=== PATIENT | female | born 1985 | race Caucasian/White ===

== ENCOUNTER 2018-08-01 20:58 | Emergency (ER) | payer OTHER ==
[2018-08-01 21:17] VITALS: RESP 18; TEMP 98.6; O2SAT 99
[2018-08-01] MEDS ORDERED: Bacitracin 500 Units/gm Oint Foilpak UD ONE (21:54)
--- NOTE | 2018-08-01 21:57 | C.PDOC ---
History Of Present Illness 32 year old female presents to the ED complaining of left foot pain. Patient [place] she felt a toothpick punctured her left foot. She reports she removed the toothpick but she is unsure if there are any small piece left inside. She denies any weakness, numbness, or tingling. Last tetanus vaccination: 3 years ago. Time Seen by Provider: 08/01/18 21:21 Chief Complaint (Nursing): Lower Extremity Problem/Injury History Per: Patient History/Exam Limitations: no limitations Onset/Duration Of Symptoms: Hrs Current Symptoms Are (Timing): Still Present Severity: Mild - Ankle/Foot Description Of Injury: Other (punctured with object ) Past Medical History Reviewed: Historical Data, Nursing Documentation, Vital Signs Vital Signs: Last Vital Signs Temp 98.6 F 08/01/18 21:12 Pulse 71 08/01/18 22:01 Resp 18 08/01/18 22:01 BP 130/86 08/01/18 22:01 Pulse Ox 99 08/02/18 03:41 - Medical History PMH: No Chronic Diseases Surgical History: - [facility] Procedures INJECT/INFUSE NEC (11/04/14) Family History: States: No Known Family Hx - Social History Hx Alcohol Use: No Hx Substance Use: No - Immunization History Hx Tetanus Toxoid Vaccination: Yes (3 years ago) Hx Influenza Vaccination: No Hx Pneumococcal Vaccination: No Review Of Systems Except As Marked, All Systems Reviewed And Found Negative. Musculoskeletal: Positive for: Foot Pain (Left) Neurological: Negative for: Weakness, Numbness Physical Exam - Physical Exam Appears: Non-toxic Skin: Warm, Dry Head: Normacephalic Eye(s): bilateral: Normal Inspection Nose: Normal Oral Mucosa: Moist Neck: Normal ROM Chest: Symmetrical Extremity: Normal ROM, Capillary Refill (less than 2sec to left foot), No Deformity, No Swelling, Other (Foreign body sensation to palpation of left foot. Small puncture to arch of left foot noted, no bleeding) Pulses: Left Dorsalis Pedis: Normal, Right Dorsalis Pedis: Normal Neurological/Psych: Oriented x3, Normal Speech Gait: Steady ED Course And Treatment O2 Sat by Pulse Oximetry: 99 (RA) Pulse Ox Interpretation: Normal Medical Decision Making Medical Decision Making: Procedure: Wound sterilized with Betadine and cleansed thoroughly and explored with a 21 G needle: No foreign body or deep structure involvement detected. Patient remained stable throughout Emergency Department evaluation with no evidence of neurologic instability. Patient tolerated procedure without difficulty. Disposition Counseled Patient/Family Regarding: Need For Followup - Disposition Referrals: Mickey Barker MD [Medical Doctor] - Disposition: HOME/ ROUTINE Disposition Time: 21:54 Condition: STABLE Additional Instructions: Please follow up with PMD in 2 days Apply antibacterial oint to area Return if swelling, redness, severe pain or worse Prescriptions: Amoxicillin/Clavulanate [Augmentin 500 MG-125 MG] 1 tab PO TID #21 tab Instructions: Wound Care (DC) Forms: [employer] (Cook Islander) - Clinical Impression Clinical Impression: Puncture wound of left foot - PA / CARE AID / Resident Statement MD/DO has reviewed & agrees with the documentation as recorded. - Scribe Statement The provider has reviewed the documentation as recorded by the Scribe Santa Gao All medical record entries made by the Scribe were at my direction and personally dictated by me. I have reviewed the chart and agree that the record accurately reflects my personal performance of the history, physical exam, medical decision making, and the department course for this patient. I have also personally directed, reviewed, and agree with the discharge instructions and disposition.
[2018-08-01 22:01] VITALS: BP 130/86; PULSE 71
== END 2018-08-01 22:05 | disposition home or self-care (01) ==
LOC: C.ER 20:58
DX: S91.332A Puncture wound without foreign body, left foot, initial encounter (principal); X58.XXXA Exposure to other specified factors, initial encounter

== ENCOUNTER 2019-02-07 14:56 | Emergency (ER) | payer BC, OTHER ==
[2019-02-07 15:11] VITALS: O2SAT 98
--- NOTE | 2019-02-07 15:23 | C.PDOC ---
History Of Present Illness 33 yr old female w/ hx of p/w abdominal pain. Pt notes abdominal pain is RLQ and RUQ, started this morning, throbbing, first time occurence. Did not try taking any meds for the pain. No back pain. No urinary complaints. No pelvic pain. No fall or trauma. She notes one episode of nbnd stool today. Notes LMP was 01/28 - 02/01, normal. No current vaginal d/c. No rash. No chest pain or sob. No other complaints. Time Seen by Provider: 02/07/19 15:13 Chief Complaint (Nursing): Abdominal Pain Past Medical History Vital Signs: Last Vital Signs Temp 99.4 F 02/07/19 15:07 Pulse 105 H 02/07/19 15:07 Resp 17 02/07/19 15:07 BP 137/82 02/07/19 15:07 Pulse Ox 98 02/07/19 15:07 Surgical History: Tonsillectomy, - [facility] Procedures INJECT/INFUSE NEC (11/04/14) Family History: States: Unknown Family Hx - Social History Hx Alcohol Use: No Hx Substance Use: No - Immunization History Hx Tetanus Toxoid Vaccination: Yes Hx Influenza Vaccination: No Hx Pneumococcal Vaccination: No Review Of Systems Constitutional: Negative for: Fever, Chills, Sweats, Weakness, Malaise, Weight loss Eyes: Negative for: Pain, Vision Change, Conjunctivae Inflammation, Eyelid Inflammation, Redness ENT: Negative for: Ear Pain, Ear Discharge, Nose Pain, Nose Discharge, Nose Congestion, Mouth Pain, Mouth Swelling, Throat Pain Cardiovascular: Negative for: Chest Pain, Palpitations, Orthopnea, Paroxysmal Noc. Dyspnea, Edema, Light Headedness Respiratory: Negative for: Cough, Shortness of Breath, Hemoptysis, SOB with Excertion, Pleuritic Pain, Sputum Gastrointestinal: Positive for: Abdominal Pain. Negative for: Nausea, Vomiting, Diarrhea, Constipation, Melena, Hematochezia, Hematemesis Genitourinary: Negative for: Dysuria, Frequency, Incontinence, Hematuria, Va ginal Discharge, Vaginal Bleeding Musculoskeletal: Negative for: Neck Pain, Back Pain Skin: Negative for: Rash, Lesions Neurological: Negative for: Weakness, Numbness, Headache Psych: Negative for: Anxiety, Depression, Psychosis, Suicidal ideation Physical Exam - Physical Exam Appears: Well, Non-toxic, No Acute Distress Skin: Normal Color, Warm Head: Atraumatic, Normacephalic Eye(s): bilateral: Normal Inspection, PERRL, EOMI Nose: Normal Oral Mucosa: Moist Tongue: Normal Appearing Lips: Normal Appearing Teeth: Normal Dentition Gingiva: Normal Appearing Throat: Normal, No Erythema, No Exudate Neck: Normal, Normal ROM, No Step Off Deformity, Supple, Other (no meningeal signs) Lymphatic: Normal Exam, No Adenopathy Chest: Symmetrical Cardiovascular: Rhythm Regular Respiratory: Normal Breath Sounds, No Rales, No Rhonchi, No Stridor, No Wheezing Gastrointestinal/Abdominal: Soft, Tenderness (rlq, ruq), No Organomegaly, No Mass, No Distention, No Guarding, No Rebound, No Hernia, No Ascites Back: Normal Inspection, No CVA Tenderness, No Vertebral Tenderness Extremity: Normal ROM, No Tenderness, No Pedal Edema Neurological/Psych: Oriented x3, Normal Speech, Normal Cognition, No Cerebellar Signs, Normal Motor Gait: Steady ED Course And Treatment - Laboratory Results Result Diagrams: 02/07/19 15:41 02/07/19 15:41 O2 Sat by Pulse Oximetry: 98 Medical Decision Making Medical Decision Makin yr old female w/ hx of p/w abdominal pain. RUQ, RLQ pain. No rebound or guarding, Will need to rule out appdx vs GB issue. No CVAT, no back pain on exam. No urinary complaints. Denies any pelvis pain or abnl vaginal d/c or rash. pending imaging and labs 7 labs largely unremarkable RUQ unremarkable pending CT abd pelvis 1736 imaging unremarkable NO RUQ pain on re-exam. Abd completely non-ttp on re-exam tolerating clears likely gastritis, endorsed need to f/u w/ pmd and GI as well as return indications she is agreeable to plan. also endorsed to followup with urology of their choice or one we have recommended, Disposition - Disposition Referrals: [facility] [Outside] [facility] [Outside] [facility] [Outside] Orestes Landaverde MD [Staff Provider] - Mickey Barker MD [Medical Doctor] - Omero Wong MD [Staff Provider] - Disposition: HOME/ ROUTINE Disposition Time: 17:37 Condition: GOOD Additional Instructions: AB Y EMA, thank you for letting us take care of you today. Your provider was Montez Robb and you were treated for RT SIDE ABD PAIN VOMITING. The emergency medical care you received today was directed at your acute symptoms. If you were prescribed any medication, please fill it and take as directed. It may take several days for your symptoms to resolve. Return to the Emergency Department if your symptoms worsen, do not improve, or if you have any other problems. Please contact your doctor or call one of the physicians/clinics you have been referred to that are listed on the Patient Visit Information form that is included in your discharge packet. Bring any paperwork you were given at discharge with you along with any medications you are taking to your follow up visit. Our treatment cannot replace ongoing medical care by a primary care provider outside of the emergency department. Thank you for allowing the [facility] team to be part of your care today. If you had an X-Ray or CT scan: A Radiologist will review the ED reading if any change in treatment is needed we will contact you. If you had a blood, urine, or wound culture: It will take several days for the results, if any change in treatment is needed we will contact you. If you had an STI test: It will take 48 hours for the results. Please call after 1 week if you have not heard back. Prescriptions: Famotidine [Pepcid] 20 mg PO BID PRN 5 Days #10 tab PRN Reason: Dyspepsia Instructions: Acute Abdomen (Belly Pain), Adult (DC), Gastritis (DC) Forms: [employer] (Mexican) - Clinical Impression Clinical Impression: Gastritis, Abdominal pain
[2019-02-07] MEDS ORDERED: Sodium Chloride 0.9% 1,000 ML IV SCH (15:45)
[2019-02-07] MEDS ORDERED: Morphine 4 MG/ML VIAL ONE (15:51)
[2019-02-07] MEDS ORDERED: Sodium Chloride 0.9% 1,000 ML ONE (15:51)
[2019-02-07 15:55] LABS: BASO % 0.3 % (0.0-2.0); EOS % 0.3 % (0.0-4.0); HEMOGLOBIN 13.9 g/dL (11.0-16.0); LYMPH # 0.6 K/uL (1.0-4.3); LYMPH % 5.8 % (20.0-40.0); MEAN CELL VOLUME 89.2 fL (81.0-99.0); MEAN CORPUSCULAR HGB CONC 34.8 g/dL (33.0-37.0); MONO # 0.6 K/uL (0.0-0.8); MONO % 5.9 % (0.0-10.0); NEUT # 8.4 K/uL (1.8-7.0); NEUT % 87.7 % (50.0-75.0); PLATELET COUNT 276 K/uL (130-400); RED CELL DISTRIBUTION WIDTH 13.8 % (11.5-14.5); WHITE BLOOD COUNT 9.6 K/uL (4.8-10.8)
[2019-02-07 16:10] LABS: BLOOD UREA NITROGEN 11 mg/dL (7-17); CALCIUM 9.3 mg/dl (8.6-10.4); GFR NON-AFRICAN AMERICAN > 60; LIPASE 27 U/L (23-300)
[2019-02-07 16:16] LABS: SQUAMOUS EPITHIAL 12 /hpf (0-5); URINE BACTERIA RARE (<OCC); URINE BILIRUBIN NEGATIVE (NEGATIVE); URINE BLOOD NEGATIVE (NEGATIVE); URINE CLARITY Hazy (Clear); URINE COLOR Yellow (YELLOW); URINE GLUCOSE (UA) NORMAL (Normal); URINE LEUKOCYTE ESTERASE NEG Leu/uL (Negative); URINE PROTEIN 2+ mg/dL (NEGATIVE)
[2019-02-07 16:20] LABS: ALB/GLOB RATIO 1.6 (1.0-2.1); ALBUMIN 4.6 g/dL (3.5-5.0); ALT/SGPT 35 U/L (9-52); AST/SGOT 44 U/L (14-36)
[2019-02-07 16:50] LABS: BANDS 1 % (0-2); LYMPHOCYTE 1 % (20-40); MONOCYTE 4 % (0-10); NEUTROPHIL 91 % (50-75); REACTIVE LYMPHOCYTES 3 % (0-0); TOTAL CELLS COUNTED 100
[2019-02-07 16:51] LABS: PLATELET ESTIMATE NORMAL (NORMAL)
--- NOTE | 2019-02-07 16:57 | US ---
Date of service: 02/07/2019 HISTORY: ruq pain COMPARISON: None. TECHNIQUE: Sonographic evaluation of the right upper quadrant of the abdomen. FINDINGS: LIVER: Measures 16.4 cm in length. Diffusely increased echogenicity of the liver parenchyma. Consistent with fatty infiltration. Smooth contour. No mass. No biliary dilatation. GALLBLADDER: Unremarkable. No gallstones. COMMON BILE DUCT: Measures 5 mm. No stones. No dilatation. PANCREAS: Unremarkable as visualized. No mass. No ductal dilatation. RIGHT KIDNEY: Measures 11.9 cm in length. Normal echogenicity. No calculus, mass, or hydronephrosis. AORTA: No aneurysmal dilatation. IVC: Unremarkable. OTHER FINDINGS: None . IMPRESSION: Fatty infiltration of the liver. No evidence of cholelithiasis or cholecystitis.
[2019-02-07] MEDS ORDERED: Iodixanol 320 MG/ML 100 ML BOTTLE IV ONE (17:14)
--- NOTE | 2019-02-07 17:20 | CT ---
Date of service: 02/07/2019 PROCEDURE: CT Abdomen and Pelvis with contrast HISTORY: rlq, ruq pain COMPARISON: None. TECHNIQUE: Contrast dose: 100 mL Visipaque 320 Radiation dose: Total exam DLP = 1225.32 mGy-cm. This CT exam was performed using one or more of the following dose reduction techniques: Automated exposure control, adjustment of the mA and/or kV according to patient size, and/or use of iterative reconstruction technique. FINDINGS: LOWER THORAX: Unremarkable. LIVER: Unremarkable. No gross lesion or ductal dilatation. GALLBLADDER AND BILE DUCTS: Unremarkable. PANCREAS: Unremarkable. No gross lesion or ductal dilatation. SPLEEN: Unremarkable. ADRENALS: Unremarkable. No mass. KIDNEYS AND URETERS: Unremarkable. No hydronephrosis. No solid mass. VASCULATURE: Unremarkable. No aortic aneurysm. No aortic atherosclerotic calcification or mural plaque present. BOWEL: Unremarkable. No obstruction. No gross mural thickening. APPENDIX: Normal appendix. PERITONEUM: Unremarkable. No free fluid. No free air. LYMPH NODES: Unremarkable. No enlarged lymph nodes. BLADDER: Unremarkable. REPRODUCTIVE: Normal uterus BONES: No acute fracture. OTHER FINDINGS: None. IMPRESSION: Unremarkable examination.
[2019-02-07 17:41] VITALS: BP 120/75; PULSE 98; RESP 16; TEMP 98.2
== END 2019-02-07 17:52 | disposition home or self-care (01) ==
LOC: C.ER 14:56
DX: K29.70 Gastritis, unspecified, without bleeding (principal)
CPT/HCPCS: 74177; 76705; 80053; 81001; 81025; 83690; 85025; 96374; 96375; 99285; J2270; J2405; J7030; Q9967